=== PATIENT | female | born 1990 | race Caucasian/White ===

== ENCOUNTER 2020-09-21 17:20 | Emergency (ER) | payer OTHER ==
[~2020-09-21] VITALS: Ht 149.9 cm; Wt 54.0 kg
[2020-09-21] MEDS ORDERED: KETOROLAC TROMETHAMINE 30 MG/ML VIAL IM STA (18:45)
[2020-09-21 19:17] VITALS: BP 112/90
== END 2020-09-21 19:24 | disposition home or self-care (01) ==
LOC: ER 17:49
DX: S62.617A Displaced fracture of proximal phalanx of left little finger, initial encounter for closed fracture (principal); Y93.61 Activity, american tackle football; Y92.321 Football field as the place of occurrence of the external cause
CPT/HCPCS: 99283; J1885

== ENCOUNTER 2020-10-05 20:32 | Emergency (ER) | payer OTHER ==
[~2020-10-05] VITALS: Ht 149.9 cm; Wt 54.0 kg
[2020-10-05] MEDS ORDERED: IBUPROFEN 600 MG TAB PO STA (21:49)
[2020-10-05] MEDS ORDERED: ULTRAM50 MG PO (21:57)
[2020-10-05] MEDS ORDERED: ZOFRAN4 MG SL (21:59)
== END 2020-10-05 22:40 | disposition home or self-care (01) ==
LOC: ER 21:46
DX: Z47.89 Encounter for other orthopedic aftercare (principal); F32.9 Major depressive disorder, single episode, unspecified; F41.9 Anxiety disorder, unspecified; M54.9 Dorsalgia, unspecified; G89.29 Other chronic pain; F17.210 Nicotine dependence, cigarettes, uncomplicated
CPT/HCPCS: 99283

== ENCOUNTER 2021-05-23 07:54 | Emergency (ER) | payer OTHER ==
[~2021-05-23] VITALS: Ht 162.6 cm; Wt 59.0 kg
[~2021-05-23 07:54] MED LIST: ULTRAM50 MG PO; ZOFRAN4 MG SL
== END 2021-05-23 08:36 | disposition home or self-care (01) ==
LOC: ER 08:21
DX: K08.89 Other specified disorders of teeth and supporting structures (principal); K02.9 Dental caries, unspecified; Z33.1 Pregnant state, incidental
CPT/HCPCS: 99282

== ENCOUNTER 2022-06-15 17:54 | Emergency (ER) | payer OTHER ==
[~2022-06-15] VITALS: Ht 162.6 cm; Wt 59.0 kg
[2022-06-15 18:28] LABS: CLARITY,URINE HAZY (CLEAR); COLOR,URINE YELLOW (YELLOW); KETONES,URINE NEGATIVE (NEGATIVE); LEUKOCYTE ESTERASE ,URINE TRACE (NEGATIVE); NITRITE,URINE NEGATIVE (NEGATIVE); PROTEIN,URINE DIPSTICK 1+ (NEGATIVE); URINE UROBILINOGEN 0.2 mg/dL (0.2 - 1)
[2022-06-15 18:29] LABS: BACTERIA,URINE FEW /HPF; EPITHELIAL CELLS,URINE FEW /LPF
[2022-06-15] MEDS ORDERED: ACETAMINOPHEN 325 MG TAB ONE (19:20)
== END 2022-06-15 19:16 | disposition home or self-care (01) ==
LOC: ER 17:58
DX: R30.0 Dysuria (principal); N39.0 Urinary tract infection, site not specified; M54.50 Low back pain, unspecified; R10.30 Lower abdominal pain, unspecified
CPT/HCPCS: 81001; 81025; 99283